=== PATIENT | female | born 1970 | race Caucasian/White ===

== ENCOUNTER 2017-09-02 18:09 | Inpatient (IN) | payer OTHER ==
[2017-09-02] MEDS ORDERED: NACL 0.9% 3 ML SYG IV (19:30)
[2017-09-02] MEDS ORDERED: ONDANSETRON 4 MG INJ IV (19:30)
[2017-09-02] MEDS ORDERED: ACETAMINOPHEN 325 MG TAB PO (19:30)
[2017-09-02] MEDS ORDERED: morphine 2 MG INJ IV (19:30)
[2017-09-02] MEDS ORDERED: DOCUSATE SODIUM 100 MG CAP PO ×4 (21:00)
[2017-09-02] MEDS ORDERED: morphine (ER) 15 MG TAB PO (21:00)
[2017-09-02] MEDS ORDERED: GABAPENTIN 300 MG CAP PO (21:00)
[2017-09-02] MEDS ORDERED: SENNA TAB PO ×2 (21:00)
[2017-09-02] MEDS: morphine (ER) 15 MG TAB PO (21:38)
[2017-09-02] MEDS: DIPHENHYDRAMINE 25 MG CAP PO (21:41)
[2017-09-02] MEDS: GABAPENTIN 300 MG CAP PO (23:24)
[2017-09-03] MEDS: GABAPENTIN 300 MG CAP PO ×4 (05:40→23:48)
[2017-09-03 07:43] LABS: ADD MAN DIFF? NO
[2017-09-03 07:47] LABS: ABNORMAL IP MESSAGE 1; BASOPHILS % 0.5 % (0.0-2.0); EOSINOPHILS % 0.5 % (0.0-7.0); HEMATOCRIT 35.3 % (37.0-47.0); HEMOGLOBIN 11.4 g/dl (12.0-16.0); LYMPHOCYTES # 1.1 10^3/ul (0.8-2.9); LYMPHOCYTES % 55.8 % (15.0-51.0); MEAN CORPUSCULAR HEMOGLOBIN 27.9 pg (29.0-33.0); MEAN CORPUSCULAR HGB CONC 32.3 g/dl (32.0-37.0); MEAN CORPUSCULAR VOLUME 86.5 fl (82.0-101.0); MEAN PLATELET VOLUME 9.8 fl (7.4-10.4); MONOCYTE # 0.3 10^3/ul (0.3-0.9); MONOCYTES % 14.1 % (0.0-11.0); NEUTROPHIL # 0.6 10^3/ul (1.6-7.5); NEUTROPHILS % 29.1 % (39.0-77.0); PLATELET COUNT 238 10^3/UL (140-415); RED BLOOD COUNT 4.08 10^6/ul (4.20-5.40); RED CELL DISTRIBUTION WIDTH 15.3 % (11.5-14.5)
[2017-09-03 07:53] LABS: POSITIVE DIFF @See below
[2017-09-03 08:08] LABS: ANION GAP 11 (8-16); BLOOD UREA NITROGEN 13 mg/dl (7-20); CALCIUM 7.8 mg/dl (8.4-10.2); CARBON DIOXIDE 27 mmol/L (21-31); CHLORIDE 105 mmol/L (97-110); CREATININE 0.62 mg/dl (0.44-1.00); GLUCOSE 96 mg/dl (70-220); MAGNESIUM 1.9 mg/dl (1.7-2.5); PHOSPHORUS 3.6 mg/dl (2.5-4.9); POTASSIUM 3.7 mmol/L (3.5-5.1); SODIUM 139 mmol/L (135-144)
[2017-09-03 08:21] LABS: INR 0.96; PROTIME 12.9 Sec (11.9-14.9)
[2017-09-03] MEDS ORDERED: POLYETHYLENE GLYCOL 17 GM PACKET PO ×2 (09:00)
[2017-09-03] MEDS ORDERED: PALBOCICLIB 100 MG PO (09:00)
[2017-09-03] MEDS ORDERED: LETROZOLE 2.5 MG TAB PO (09:00)
[2017-09-03] MEDS: morphine (ER) 15 MG TAB PO ×2 (10:32→22:04)
[2017-09-03] MEDS: HEPARIN 5,000 UNIT/0.5 ML VIAL SC ×2 (10:52→22:08)
[2017-09-03] MEDS: LETROZOLE 2.5 MG TAB PO (10:52)
[2017-09-03] MEDS: FUROSEMIDE 20 MG TAB PO (14:51)
[2017-09-03] MEDS: GUAIFENESIN 20 MG/ML 5ML CUP PO ×2 (14:51→22:04)
[2017-09-03] MEDS: DIPHENHYDRAMINE 25 MG CAP PO (22:04)
[2017-09-03] MEDS: SOD CHLORIDE 0.9% 100 ML (22:34)
[2017-09-03] MEDS: IODIXANOL LOCM 100 ML BTL (22:34)
[2017-09-04] MEDS: GABAPENTIN 300 MG CAP PO ×4 (05:24→21:10)
[2017-09-04] MEDS: GUAIFENESIN 20 MG/ML 5ML CUP PO ×2 (05:34→21:11)
[2017-09-04 09:33] LABS: ADD MAN DIFF? NO
[2017-09-04 09:39] LABS: BASOPHILS % 0.3 % (0.0-2.0); HEMATOCRIT 39.5 % (37.0-47.0); HEMOGLOBIN 12.8 g/dl (12.0-16.0); LYMPHOCYTES # 1.5 10^3/ul (0.8-2.9); MEAN CORPUSCULAR HEMOGLOBIN 27.9 pg (29.0-33.0); MEAN CORPUSCULAR HGB CONC 32.4 g/dl (32.0-37.0); MEAN CORPUSCULAR VOLUME 86.2 fl (82.0-101.0); MEAN PLATELET VOLUME 9.8 fl (7.4-10.4); MONOCYTE # 0.3 10^3/ul (0.3-0.9); MONOCYTES % 10.6 % (0.0-11.0); NEUTROPHIL # 1.2 10^3/ul (1.6-7.5); NEUTROPHILS % 38.8 % (39.0-77.0); PLATELET COUNT 289 10^3/UL (140-415); RED BLOOD COUNT 4.58 10^6/ul (4.20-5.40)
[2017-09-04 09:39] LABS: WHITE BLOOD COUNT 3.1 10^3/ul (4.8-10.8)
[2017-09-04] MEDS: HEPARIN 5,000 UNIT/0.5 ML VIAL SC ×2 (10:20→21:09)
[2017-09-04] MEDS: morphine (ER) 15 MG TAB PO ×2 (10:20→21:04)
[2017-09-04] MEDS: LETROZOLE 2.5 MG TAB PO (10:20)
[2017-09-04] MEDS ORDERED: LIDOCAINE 1%/EPI 30 ML INJ (12:04)
[2017-09-04] MEDS ORDERED: MIDAZOLAM 1 MG/ML 2 ML INJ (12:18)
[2017-09-04] MEDS ORDERED: FENTAnyl 50 MCG/ML VIAL (12:18)
[2017-09-04] MEDS: HYDROCODONE/APAP (5/325) TAB PO (16:52)
[2017-09-05] MEDS: GABAPENTIN 300 MG CAP PO ×5 (05:33→23:41)
[2017-09-05 07:27] LABS: ADD MAN DIFF? NO
[2017-09-05 07:33] LABS: WHITE BLOOD COUNT 2.8 10^3/ul (4.8-10.8)
[2017-09-05 07:33] LABS: BASOPHILS % 0.4 % (0.0-2.0); EOSINOPHILS % 0.7 % (0.0-7.0); HEMATOCRIT 35.5 % (37.0-47.0); HEMOGLOBIN 11.6 g/dl (12.0-16.0); LYMPHOCYTES # 1.1 10^3/ul (0.8-2.9); LYMPHOCYTES % 38.2 % (15.0-51.0); MEAN CORPUSCULAR HEMOGLOBIN 28.2 pg (29.0-33.0); MEAN CORPUSCULAR HGB CONC 32.7 g/dl (32.0-37.0); MEAN CORPUSCULAR VOLUME 86.4 fl (82.0-101.0); MEAN PLATELET VOLUME 9.7 fl (7.4-10.4); MONOCYTE # 0.3 10^3/ul (0.3-0.9); MONOCYTES % 10.9 % (0.0-11.0); NEUTROPHIL # 1.4 10^3/ul (1.6-7.5); NEUTROPHILS % 49.8 % (39.0-77.0); PLATELET COUNT 256 10^3/UL (140-415); RED BLOOD COUNT 4.11 10^6/ul (4.20-5.40); RED CELL DISTRIBUTION WIDTH 14.7 % (11.5-14.5)
[2017-09-05 07:39] LABS: POSITIVE DIFF @See below
[2017-09-05] MEDS: LETROZOLE 2.5 MG TAB PO (09:00)
[2017-09-05] MEDS: SOD CHLORIDE 0.9% 100 ML (09:15)
[2017-09-05] MEDS: IOHEXOL 300MG/ML 150 ML BTL (09:15)
[2017-09-05] MEDS: morphine (ER) 15 MG TAB PO ×2 (09:16→20:12)
[2017-09-05] MEDS: HEPARIN 5,000 UNIT/0.5 ML VIAL SC ×2 (09:25→20:14)
[2017-09-05] MEDS: GUAIFENESIN 20 MG/ML 5ML CUP PO (09:40)
[2017-09-05] MEDS: HYDROCODONE/APAP (5/325) TAB PO (13:26)
[2017-09-05 13:42] LABS: CA27.29 761 U/mL (<38)
[2017-09-06] MEDS: GABAPENTIN 300 MG CAP PO ×3 (05:56→18:30)
[2017-09-06] MEDS: morphine (ER) 15 MG TAB PO ×2 (08:23→20:40)
[2017-09-06] MEDS: HEPARIN 5,000 UNIT/0.5 ML VIAL SC ×2 (08:26→20:40)
[2017-09-06] MEDS: LETROZOLE 2.5 MG TAB PO (08:30)
[2017-09-06 18:02] LABS: CANCER ANTIGEN 15-3 792 U/mL (<32)
[2017-09-07] MEDS: GABAPENTIN 300 MG CAP PO ×5 (00:32→23:37)
[2017-09-07] MEDS: GUAIFENESIN 20 MG/ML 5ML CUP PO ×4 (02:18→23:37)
[2017-09-07] MEDS: morphine (ER) 15 MG TAB PO ×2 (09:14→20:56)
[2017-09-07] MEDS: HEPARIN 5,000 UNIT/0.5 ML VIAL SC ×2 (09:17→21:02)
[2017-09-08] MEDS: GABAPENTIN 300 MG CAP PO ×3 (06:08→18:58)
[2017-09-08] MEDS: GUAIFENESIN 20 MG/ML 5ML CUP PO ×3 (06:19→18:58)
[2017-09-08] MEDS: morphine (ER) 15 MG TAB PO ×2 (09:18→20:48)
[2017-09-08] MEDS: HEPARIN 5,000 UNIT/0.5 ML VIAL SC ×2 (09:18→20:51)
[2017-09-08] MEDS ORDERED: GUAIFENESIN 20 MG/ML 5ML CUP PO (22:30)
[2017-09-09] MEDS: GUAIFENESIN 20 MG/ML 5ML CUP PO ×5 (00:29→23:41)
[2017-09-09] MEDS: GABAPENTIN 300 MG CAP PO ×5 (00:29→23:39)
[2017-09-09] MEDS: HEPARIN 5,000 UNIT/0.5 ML VIAL SC ×2 (08:43→20:21)
[2017-09-09] MEDS: morphine (ER) 15 MG TAB PO ×2 (08:45→20:19)
[2017-09-09] MEDS: HYDROCORTISONE 1% 28 GM CR TOP (12:07)
[2017-09-10] MEDS: GABAPENTIN 300 MG CAP PO ×3 (05:57→18:24)
[2017-09-10] MEDS: GUAIFENESIN 20 MG/ML 5ML CUP PO ×2 (05:57→12:46)
[2017-09-10] MEDS: morphine (ER) 15 MG TAB PO (08:22)
[2017-09-10] MEDS: HEPARIN 5,000 UNIT/0.5 ML VIAL SC (08:25)
== END 2017-09-10 19:00 | disposition home health service (06) | DRG 598 ==
LOC: MS4 18:09 → MS2 09-04 14:45
PROC: 0W9B30Z Drainage of Left Pleural Cavity with Drainage Device, Percutaneous Approach (ICD-10-PCS; principal; 2017-09-04 11:45)
DX: C50.912 Malignant neoplasm of unspecified site of left female breast (principal); J91.0 Malignant pleural effusion; C79.51 Secondary malignant neoplasm of bone; C78.7 Secondary malignant neoplasm of liver and intrahepatic bile duct; C78.00 Secondary malignant neoplasm of unspecified lung; M84.58XA Pathological fracture in neoplastic disease, other specified site, initial encounter for fracture; J95.811 Postprocedural pneumothorax; G62.9 Polyneuropathy, unspecified; R60.0 Localized edema; Z92.3 Personal history of irradiation; Z90.13 Acquired absence of bilateral breasts and nipples; K59.03 Drug induced constipation; T50.995A Adverse effect of other drugs, medicaments and biological substances, initial encounter; R60.9 Edema, unspecified; Z17.0 Estrogen receptor positive status [ER+]; Y83.8 Other surgical procedures as the cause of abnormal reaction of the patient, or of later complication, without mention of misadventure at the time of the procedure; Y92.239 Unspecified place in hospital as the place of occurrence of the external cause
CPT/HCPCS: 71045; 71046; 71270; 72128; 80048; 83735; 84100; 85025; 85610; 86300; 87081